=== PATIENT | male | born 1960 | race African-American/Black ===

== ENCOUNTER → 2016-11-25 | Outpatient (CLI) | payer MEDICARE, MEDICAID | LOC: SP 12:24 | PROVIDERS: ATTEND Surgery | DX: I87.333 Chronic venous hypertension (idiopathic) with ulcer and inflammation of bilateral lower extremity (principal); L97.212 Non-pressure chronic ulcer of right calf with fat layer exposed | CPT/HCPCS: 93925; 93970 ==

== ENCOUNTER → 2017-01-14 | Outpatient (CLI) | payer MEDICARE, MEDICAID | LOC: OD 13:26 | PROVIDERS: ATTEND Family Medicine | DX: M79.671 Pain in right foot (principal) ==

== ENCOUNTER 2017-01-26 05:56 | Day surgery (SDC) | payer MEDICARE, MEDICAID ==
[2017-01-20 12:06] LABS: HEMATOCRIT 41.1 % (37.9-51.0); HEMOGLOBIN 13.5 g/dL (13.5-17.0); HGB HCT DIFFERENCE -0.6; MEAN CORPUSCULAR HEMOGLOBIN 28.8 pg (27.0-33.4); MEAN CORPUSCULAR VOLUME 88 fl (80-97); RED BLOOD COUNT 4.69 10^6/uL (4.35-5.55); RED CELL DISTRIBUTION WIDTH 15.1 % (11.5-14.0)
[2017-01-20 12:27] LABS: ANION GAP 10 (5-19); BLOOD UREA NITROGEN 21 mg/dL (7-20); CALCIUM 9.6 mg/dL (8.4-10.2); CARBON DIOXIDE 29 mmol/L (22-30); CHLORIDE 104 mmol/L (98-107); GLUCOSE 113 mg/dL (75-110); POTASSIUM 4.5 mmol/L (3.6-5.0); SODIUM 143.4 mmol/L (137-145)
--- NOTE | 2017-01-20 13:40 | EKG REPORT ---
SEVERITY:- BORDERLINE ECG - SINUS RHYTHM BORDERLINE IVCD WITH LAD BORDERLINE T ABNORMALITIES, ANT-LAT LEADS : Confirmed by: Ricky Jiménez 20-Jan-2017 13:39:59
[~2017-01-26 05:56] MED LIST: DEXTROSE 5%-1/2 NORMAL SALINE 1,000 ML IV PRN; LACTATED RINGERS 1000 ML IV PRN
[2017-01-26] MEDS ORDERED: BUPIVACAINE HCL 0.25 % INJ/PF (2.5 MG/1 ML) 30 ML VIAL ONE (06:32)
[2017-01-26] MEDS ORDERED: LIDOCAINE 0.5% INJ-PF (5 MG/ML) 50 ML SDV ONE ×2 (06:33→07:42)
[2017-01-26] MEDS ORDERED: BACITRACIN INJ 50,000 UNIT VIAL ONE ×2 (06:33→09:07)
[2017-01-26] MEDS ORDERED: MIDAZOLAM 2 MG/2 ML INJ ONE (07:12)
[2017-01-26] MEDS ORDERED: PROPOFOL INJ 200 MG/20 ML VIAL IV ONE ×2 (07:12→10:04)
[2017-01-26] MEDS ORDERED: FENTANYL CITRATE INJ/PF 250 MCG/5 ML AMPULE ONE (07:12)
[2017-01-26] MEDS ORDERED: ACETAMINOPHEN 100 ML IV ONE (07:13)
[2017-01-26] MEDS ORDERED: DEXMEDETOMIDINE INJ 80 MCG/20 ML VIAL IV ONE (07:13)
[2017-01-26] MEDS: CEFAZOLIN 1 GM/D5W RTU 1 GM/50 ML RTUPB IV PRN ×2 (08:04→13:19)
[2017-01-26] MEDS ORDERED: ONDANSETRON HCL INJ/PF 4 MG/2 ML SDV IV PRN (08:14)
[2017-01-26] MEDS ORDERED: PROMETHAZINE HCL INJ 25 MG/1 ML VIAL IV PRN ×2 (08:14)
[2017-01-26] MEDS ORDERED: DIPHENHYDRAMINE HCL 50 MG/ML VIAL IV PRN (08:14)
[2017-01-26] MEDS ORDERED: MEPERIDINE HCL/PF INJ 25 MG/1 ML DISP.SYRIN IV PRN (08:14)
[2017-01-26] MEDS ORDERED: MORPHINE SULFATE 10 MG/ML INJ IV PRN ×2 (08:14→10:22)
[2017-01-26] MEDS ORDERED: OXYCODONE-ACETAMINOPHEN 5-325 MG TABLET PO PRN ×3 (08:14→10:23)
[2017-01-26] MEDS ORDERED: FENTANYL CITRATE INJ/PF 100 MCG/2 ML AMPUL IV PRN ×3 (08:14)
[2017-01-26] MEDS ORDERED: HYDRALAZINE HCL INJ/PF 20 MG/1 ML SDV ONE (10:04)
[2017-01-26] MEDS ORDERED: LIDOCAINE 2% INJ-PF (20 MG/ML) 10 ML AMPUL ONE (12:59)
[2017-01-26] MEDS: LIDOCAINE 0.5% INJ-PF (5 MG/ML) 50 ML SDV SUBCUT PRN ×2 (13:19→13:20)
--- NOTE | 2017-01-26 18:08 | Operative Report ---
Operative Report DATE OF SURGERY: 01/26/17 PREOPERATIVE DIAGNOSIS: #1 chronic venous stasis ulcers of the right leg. #2 sleep apnea. #3 obesity. #4 hypertension. POSTOPERATIVE DIAGNOSIS: #1 chronic venous stasis ulcers of the right leg. Post skin grafting. #2 sleep apnea. #3 obesity. #4 hypertension. OPERATION: #1 skin grafting to right leg chronic venous stasis ulcers. #2 from abdomen. Full-thickness graft. SURGEON: TREASURE RAMIREZ RN MED SURG: ALEXANDRA CHRISTIAN ANESTHESIA: LMAC TISSUE REMOVED OR ALTERED: Not applicable COMPLICATIONS: None ESTIMATED BLOOD LOSS: 20 mL. INTRAOPERATIVE FINDINGS: Of a large posterior and lateral venous stasis ulcer in the mid right leg. On the basis of fragile skin. Measures approximately 9 x 2.5 cm. A second axillary in the anterior leg measures about 2 cm. Both were nicely covered with a full-thickness skin graft taken from the abdomen. PROCEDURE: In this patient who has had many months of attempts at closing his lower extremity wounds in the wound clinic and in whom now appropriate level of venous intervention seems to be helpful, a skin graft is recommended. The patient is accepting of the procedure, risks, benefits, expected outcome . The right leg and abdomen were prepared, with Betadine and draped out with sterile linen. The heel and right lower extremity supported on wedges, so as to give circumferential access to the area of the wound. After the universal timeout, in which it was verified that the patient did receive antibiotic, the procedure commenced. The patient was appropriately anesthetized. The incision of appropriate dimensions to cover the recipient was marked on the abdomen. Local anesthesia was infiltrated in the abdominal donor site. First the skin was cleaned with saline so that no antiseptic remained. An oval incision was sketched in the crease just above the abdominal pannus. This was centered on the midline and measured about 9 x 3 cm. The incision was now made through the epidermis and dermis. Working from the right side of the patient, the skin donor was excised with a 15 blade scalpel. This was done in the deep dermal layer. The donor was now put aside in a saline moistened gauze. Underlying fatty tissue, at the donor site was now excised using cautery in order to facilitate closure. The donor site was now closed after obtaining hemostasis. Closure was done in layers, the deeper layer closed with interrupted 3-0 PDS and the skin closed with a continuous subcuticular suture of 4-0 Monocryl, reinforced with inch Steri-Strips over benzoin. A sterile dressing was now applied. Attention now turned to the right leg wound site. The leg was debrided of nonviable tissue and excess granulation tissue using a 10 blade scalpel with removal of loose debris as well. The wound was irrigated with sterile saline. A saline moistened gauze was now placed on the recipient sites. The donor was now defatted using iris scissors. It was thinned out. Cleaned with saline and then placed on the recipient site. Several incisions were made in the donor using a 11 blade scalpel. The donor was now sutured in place using 4 sutures of 3-0 PDS placed in the 4 quadrants. Each was left long for subsequent tying. Interval interrupted sutures of 3-0 PDS were placed in order to anchor the graft. Once once this was done satisfactorily an Adaptic gauze was placed on the graft followed by a gauze lightly moistened with saline. The 4 sutures previously left long were now tied over this so as to secure nice anchoring and appropriate pressure on the graft. 4 x 4s and Kerlix were now applied. Is to be noted that the secondary wound, somewhat medially was treated in identical fashion and both were dressed with 4 x 4s and Kerlix. Kerlix, then Webril then Christ wraps applied, the Christ wraps held in place with spiral 2 inch tape. The procedure was now concluded.
[2017-01-27] MEDS ORDERED: ENOXAPARIN SODIUM INJ 40 MG/0.4 ML DISP.SYRIN SUBCUT ONE (22:00)
[2017-01-28] MEDS ORDERED: ENOXAPARIN SODIUM INJ 40 MG/0.4 ML DISP.SYRIN SUBCUT SCH (10:00)
--- NOTE | 2017-01-28 16:48 | PDOC PROGRESS REPORT ---
Subjective Progress Note for:: 01/27/17 Subjective:: Doing OK after leg wound debridement and skin grafting. Physical Exam Vital Signs: Temp Pulse Resp BP Pulse Ox 98.1 F 90 16 117/70 98 01/27/17 03:34 01/27/17 03:34 01/27/17 03:34 01/27/17 03:34 01/27/17 03:34 Intake & Output 01/26/17 01/27/17 01/28/17 06:59 06:59 06:59 Intake Total 0 2393 Output Total 1145 Balance 0 1248 Weight 173.27 kg 79.333 kg Additional comments: Well-developed well-nourished -Romanian male, alert and oriented. Dressings in place in the right leg grafting site. Grafting site daughter on the abdomen is fine. Alert oriented, judgment, memory, insight normal. Results Laboratory Results: 01/20/17 11:28 01/26/17 06:16 Impressions: Chest X-Ray 01/20/17 11:36 IMPRESSION: NO SIGNIFICANT RADIOGRAPHIC FINDING IN THE CHEST. Assessment & Plan - Plan Summary Plan Summary: #1 chronic stasis ulcer of the right leg. 2 status post skin graft of the right leg. 3. Obesity. 4. Hypertension. Plan the patient is kept in for pain control. It is estimated that he should be able to go home in about 24-48 hours providing pain control is adequate.
--- NOTE | 2017-01-28 17:41 | PDOC DISCHARGE SUMMARY ---
General - Admit/Disc Date/PCP Admission Date/Primary Care Provider: ANDRE SERVIN DO Discharge Date: 01/28/17 - Additional Information Home Medications: Oxycodone HCl/Acetaminophen [Percocet 5-325 mg Tablet] 1 tab PO Q4HP PRN #35 tablet 08/16/15 Torsemide [Demadex 20 mg Tablet] 40 mg PO DAILY #30 tablet 08/16/15 Cyclobenzaprine HCl [Flexeril 10 mg Tablet] 10 mg PO TIDP PRN #15 tab 07/02/16 History of Present Illness Patient complains of: Patient has been treated for bilateral lower extremity stasis ulcers for several months. The one on the right has proved extremely resistant and is no subject to skin grafting. History of Present Illness: ADITYA BONILLA is a 56 year old male Hospital Course Hospital Course: The patient was admitted and underwent full-thickness skin graft from the abdominal wall to the right leg under local anesthesia with sedation. Procedure was satisfactory. The patient was kept in for pain control. The first operative day there was considerable improvement. As of note the patient has achieved maximal in-hospital benefits and will be discharged. Detailed discharge instructions are to be followed in the discharge order set. Patient is to continue his normal medications per the medical occasional red reconciliation sheet activities. Follow-up is to be in the wound clinic with Dr. Mendoza on next. Physical Exam Vital Signs: Temp Pulse Resp BP Pulse Ox 98 F 85 17 119/71 99 01/28/17 16:00 01/28/17 16:00 01/28/17 16:00 01/28/17 16:00 01/28/17 16:00 Intake & Output 01/27/17 01/28/17 01/29/17 06:59 06:59 06:59 Intake Total 2393 860 547 Output Total 1145 1000 700 Balance 1248 -140 -153 Weight 79.333 kg Additional comments: Well-developed well-nourished -Burkinan gentleman. No acute distress. Abdomen soft. Dressing in place from the donor site. Extremities pertinent for right lower extremity is in appropriate compression wrap. Results Laboratory Results: 01/20/17 11:28 01/26/17 06:16 Impressions: Chest X-Ray 01/20/17 11:36 IMPRESSION: NO SIGNIFICANT RADIOGRAPHIC FINDING IN THE CHEST. Plan Discharge Plan: Patient will be discharged home. Activities, diet, medication as before. The compression wrap on the right leg is to be left on until seen in the wound clinic next . Followed by appointment in the wound clinic next .
[2017-01-28 20:50] VITALS: BP 118/67
== END 2017-01-28 23:45 | disposition home health service (06) ==
LOC: OROUT 05:56 → 4N 10:46 → OROUT 01-28 23:45
PROVIDERS: ATTEND Surgery
PROC: 0HRKX73 Replacement of Right Lower Leg Skin with Autologous Tissue Substitute, Full Thickness, External Approach (ICD-10-PCS; 2017-01-26)
PROC: 0HBKXZZ Excision of Right Lower Leg Skin, External Approach (ICD-10-PCS; principal; 2017-01-26 08:00)
DX: I83.018 Varicose veins of right lower extremity with ulcer other part of lower leg (principal); M19.90 Unspecified osteoarthritis, unspecified site; E66.9 Obesity, unspecified; I10 Essential (primary) hypertension; G47.30 Sleep apnea, unspecified; Z68.43 Body mass index [BMI] 50.0-59.9, adult
CPT/HCPCS: 93005; 36415 ×2; 84132; 85027; 80048; 71020; 93010; 97597; 15220; 15221; J2250; J3490 ×5; J0690; J3010; J0360; J1650 ×2; A9270; J2704; J0131; 400

== ENCOUNTER 2017-02-22 17:59 | Emergency (ER) | payer MEDICARE, MEDICAID ==
[2017-02-22] MEDS ORDERED: HYDROMORPHONE HCL INJ/PF 2 MG/ML AMPULE IV ONE (19:32)
--- NOTE | 2017-02-22 19:32 | ER Document Report ---
ED General - General Mode of Arrival: Medic Information source: Patient TRAVEL OUTSIDE OF THE [place] IN LAST 30 DAYS: No - HPI Patient complains to provider of: Bilateral leg swelling and pain Onset: Other - 6 days ago Associated symptoms: Other - see notes above <FAREED SANDHU - Last Filed: 02/23/17 03:27> <SRAVAN PALENCIA - Last Filed: 02/23/17 03:51> - General Chief Complaint: Knee Injury Stated Complaint: LEG SWELLING Time Seen by Provider: 02/22/17 19:15 Notes: 56 year old male with history of arthritis to the bilateral knees, left sciatica , and a right leg skin graft secondary to a non-healing wound presents to the ED via EMS complaining of bilateral knee pain and swelling that started 6 days ago. Patient reports that he has been bed bound for the past couple days secondary to this pain and being unable to bear weight. Patient reports that yesterday he was able to get out of bed, but quickly lost his strength and states that his right knee was giving out. Patient has been on Percocet historically but when when they weren't helping he was switched over to Naproxen and Baclofen. PCP: Dr. Cárdenas (FAREED SANDHU) - Related Data Allergies/Adverse Reactions: No Known Allergies Allergy (Verified 01/20/17 11:09) Past Medical History - General Information source: Patient - Social History Smoking Status: Never Smoker Chew tobacco use (# tins/day): Yes Frequency of alcohol use: None Drug Abuse: None Family History: Arthritis, CVA, DM, Hypertension, Malignancy - Liver Patient has suicidal ideation: No Patient has homicidal ideation: No - Past Medical History Cardiac Medical History: Reports: Hx Hypertension, Hx Peripheral Vascular Disease GI Medical History: Reports: Hx Colonoscopy Musculoskeltal Medical History: Reports Hx Arthritis - bilateral knees, Reports Hx Musculoskeletal Deformity, Reports Hx Musculoskeletal Trauma Skin Medical History: Reports Hx Cellulitis Psychiatric Medical History: Denies: Hx Depression Past Surgical History: Reports: Hx Orthopedic Surgery - right knee scoped, Other - right leg skin graft - Immunizations Immunizations up to date: Yes Hx Diphtheria, Pertussis, Tetanus Vaccination: Yes <FAREED SANDHU - Last Filed: 02/23/17 03:27> Review of Systems - Review of Systems Constitutional: See HPI, Weakness EENT: No symptoms reported Cardiovascular: No symptoms reported Respiratory: No symptoms reported Gastrointestinal: No symptoms reported Genitourinary: No symptoms reported Male Genitourinary: No symptoms reported Musculoskeletal: See HPI, Joint pain - bilateral knee, Joint swelling - bilateral knee, Leg swelling - bilateral knee, Other - bilateral leg pain Skin: No symptoms reported Hematologic/Lymphatic: No symptoms reported Neurological/Psychological: No symptoms reported -: Yes All other systems reviewed and negative <FAREED SANDHU - Last Filed: 02/23/17 03:27> Physical Exam - General General appearance: Alert In distress: None - HEENT Head: Normocephalic, Atraumatic Eyes: Normal Extraocular movements intact: Yes Pupils: PERRL - Respiratory Respiratory status: No respiratory distress Breath sounds: Normal - Cardiovascular Rhythm: Regular Heart sounds: Normal auscultation - Abdominal Inspection: Morbidly Obese Distension: No distension Tenderness: Nontender - Back Back: Normal - Extremities General upper extremity: Normal inspection, Normal ROM General lower extremity: Normal inspection, Normal ROM Knee: Pain with ROM - right. No: Abrasion, Deformity - Neurological Neuro grossly intact: Yes Cognition: Normal Orientation: AAOx4 [place] Coma Scale Eye Opening: Spontaneous [place] Coma Scale Verbal: Oriented [place] Coma Scale Motor: Obeys Commands [place] Coma Scale Total: 15 Speech: Normal - Psychological Associated symptoms: Normal affect, Normal mood - Skin Skin Temperature: Warm Skin Moisture: Dry Skin Color: Normal <FAREED SANDHU - Last Filed: 02/23/17 03:27> Course - Laboratory Result Diagrams: 02/22/17 20:40 02/22/17 20:40 <FAREED SANDHU - Last Filed: 02/23/17 03:27> - Laboratory Result Diagrams: 02/22/17 20:40 02/22/17 20:40 <SRAVAN PALENCIA - Last Filed: 02/23/17 03:51> - Re-evaluation Re-evalutation: 02/22/17 22:01 Presenting to emergency department with a chief complaint of knee pain. Patient says he has chronic knee pain chronic back pain morbid obesity and is waiting to lose weight after gastric bypass surgery. 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 Told him that if he potentially loses weight he may not have to have a knee replacement. For the past 4-5 days he has had increasing pain a little bit of swelling in the knee but no obvious injury. No fevers chills cough abdominal pain back pain numbness tingling weakness loss of bowel or bladder function. And denies any history of fall. It has been increasingly difficult for him to get up and move around. On examination the knee is not red hot or swollen he is morbidly obese good pulses and perfusion with no evidence of septic joint x-ray shows severe compartmental arthritis. Again on a pain shot with minimal to no relief. He says he has Percocet at home that he does not take because it does not help the pain. He does have a primary care physician as well as orthopedic physician I did instruct him to take the Percocet 2 tablets every 4 hours and follow-up with the primary care physician in the next few days with referral to orthopedic surgeon. We do have an orthopedic surgeon conventional underwriter which I gave him the name and information of and he is to call and make a follow-up appointment. And discussed reasons for ED return sooner (SRAVAN PALENCIA) - Vital Signs Vital signs: Temp Pulse Resp BP Pulse Ox 98.9 F 114 H 20 135/97 H 100 02/22/17 23:59 02/22/17 23:59 02/22/17 23:59 02/22/17 23:59 02/22/17 23:59 - Laboratory Laboratory results interpreted by me: 02/22/17 02/22/17 02/22/17 19:51 20:40 20:40 WBC 14.1 H Hgb 13.0 L RDW 15.2 H Seg Neutrophils % 79.9 H Lymphocytes % 9.2 L Absolute Neutrophils 11.3 H Sodium 145.5 H BUN 22 H Urine Blood SMALL H Discharge <FAREED SANDHU - Last Filed: 02/23/17 03:27> <SRAVAN PALENCIA - Last Filed: 02/23/17 03:51> - Discharge Clinical Impression: knee pain with severe osteoarthritis Condition: Stable Additional Instructions: severe Arthritis with knee pain Your symptoms are due to arthritis. Arthritis is an inflammation of the joints. There are many types -- osteoarthritis (due to "wear and tear"), auto- immmune arthritis (such as rheumatoid, lupus, Cynthia's, and others), and crystal -induced arthritis (such as gout and pseudogout). The physician's examination, combined with laboratory tests, will determine the cause of your arthritis. All types of arthritis are treated with antiinflammatory medications. Other medication may be required for special types of arthritis, or if your problem does not respond to the antiinflammatory medicine. Local warmth may be helpful. Move the involved joints through the full range of motion daily. Mild exercise is usually still possible for most persons with arthritis (ask your physician). Swimming provides good exercise without damaging the joints. Contact the physician if you are worsening in any way. Referrals: ANDRE CÁRDENAS DO [Primary Care Provider] - Follow up in 3-5 days BLAINE ANGUIANO DO [ACTIVE STAFF] - (Call in a.m. for follow-up appointment in 3- 5 days return for increasing worsening or new set) Scribe Attestation: 02/22/17 22:01 I personally performed the services described in the documentation reviewed the documentation recorded by my scribe in my presence and it accurately and completely records my words and actions (SRAVAN PALENCIA) Scribe Documentation - Scribe Written by Josefina:: Josefina Stephens, 02/22/2017 [id number] acting as scribe for :: Zoran <FAREED SANDHU - Last Filed: 02/23/17 03:27>
[2017-02-22 20:15] LABS: APPEARANCE,URINE CLEAR; BILIRUBIN,URINE NEGATIVE (NEGATIVE); GLUCOSE, URINE NEGATIVE (NEGATIVE); KETONES,URINE NEGATIVE (NEGATIVE); LEUKOCYTE ESTERASE,URINE NEGATIVE (NEGATIVE); NITRITE,URINE NEGATIVE (NEGATIVE); PROTEIN,URINE NEGATIVE (NEGATIVE); URINE SPECIFIC GRAVITY 1.005; UROBILINOGEN,URINE NEGATIVE mg/dL (<2.0)
--- NOTE | 2017-02-22 20:18 | RADIOLOGY REPORT (SQ) ---
EXAM DESCRIPTION: KNEE RIGHT 4 VIEWS COMPLETED DATE/TIME: 02/22/2017 8:00 pm REASON FOR STUDY: pain COMPARISON: None. NUMBER OF VIEWS: Four views. TECHNIQUE: AP, lateral, and both oblique radiographic images acquired of the right knee. LIMITATIONS: None. FINDINGS: MINERALIZATION: Normal. BONES: No acute fracture or dislocation. Moderate -severe tricompartmental arthrosis. No worrisome bone lesions. Femoral and tibial osteochondromas. JOINT: Moderate effusion. SOFT TISSUES: Mild soft tissue swelling. No radio-opaque foreign body. OTHER: No other significant finding. IMPRESSION: No fracture. Moderate joint effusion. Moderate -severe tricompartmental degenerative c hanges. TECHNICAL DOCUMENTATION: JOB ID: [id number] [employer]- All Rights Reserved
--- NOTE | 2017-02-22 20:21 | RADIOLOGY REPORT (SQ) ---
EXAM DESCRIPTION: KNEE LEFT 4 VIEW COMPLETED DATE/TIME: 02/22/2017 8:00 pm REASON FOR STUDY: pain COMPARISON: None. NUMBER OF VIEWS: Four views. TECHNIQUE: AP, lateral, and both oblique radiographic images acquired of the left knee. LIMITATIONS: None. FINDINGS: MINERALIZATION: Normal. BONES: No acute fracture or dislocation. Moderate -severe tricompartmental arthrosis. No worrisome bone lesions. Tibial osteochondromas. JOINT: No effusion. SOFT TISSUES: No soft tissue swelling. No radio-opaque foreign body. OTHER: No other significant finding. IMPRESSION: No fracture. TECHNICAL DOCUMENTATION: JOB ID: [id number] [employer]- All Rights Reserved
[2017-02-22 20:50] LABS: ABSOLUTE BASOPHILS # (AUTO) 0.1 10^3/uL (0.0-0.2); ABSOLUTE EOSINOPHILS # (AUTO) 0.1 10^3/uL (0.0-0.6); ABSOLUTE LYMPHOCYTES (AUTO) 1.3 10^3/uL (0.5-4.7); ABSOLUTE MONOCYTES (AUTO) 1.3 10^3/uL (0.1-1.4); ABSOLUTE NEUT (AUTO) 11.3 10^3/uL (1.7-8.2); BASOPHILS % (AUTO) 0.4 % (0-2); HEMATOCRIT 40.2 % (37.9-51.0); HGB HCT DIFFERENCE -1.2; LYMPHOCYTES % (AUTO) 9.2 % (13-45); MEAN CORPUSCULAR HEMOGLOBIN 28.6 pg (27.0-33.4); MEAN CORPUSCULAR HGB CONC 32.3 g/dL (32.0-36.0); MEAN CORPUSCULAR VOLUME 89 fl (80-97); MONOCYTES % (AUTO) 9.5 % (3-13); RED BLOOD COUNT 4.54 10^6/uL (4.35-5.55); RED CELL DISTRIBUTION WIDTH 15.2 % (11.5-14.0); SEGMENTED NEUTROPHILS % (AUTO) 79.9 % (42-78); WHITE BLOOD COUNT 14.1 10^3/uL (4.0-10.5)
[2017-02-22 21:18] LABS: ANION GAP 14 (5-19); BLOOD UREA NITROGEN 22 mg/dL (7-20); CARBON DIOXIDE 28 mmol/L (22-30); CHLORIDE 104 mmol/L (98-107); CREATININE RESULT 1.17 mg/dL (0.52-1.25); GLUCOSE 109 mg/dL (75-110); POTASSIUM 3.6 mmol/L (3.6-5.0); SODIUM 145.5 mmol/L (137-145)
[2017-02-23 12:11] VITALS: BP 116/76
== END 2017-02-23 13:01 | disposition home or self-care (01) ==
LOC: ER 17:59
DX: M17.0 Bilateral primary osteoarthritis of knee (principal); M25.561 Pain in right knee; M25.562 Pain in left knee; M54.9 Dorsalgia, unspecified; R53.1 Weakness; G89.29 Other chronic pain; I10 Essential (primary) hypertension; E66.01 Morbid (severe) obesity due to excess calories; Z68.43 Body mass index [BMI] 50.0-59.9, adult; Z79.52 Long term (current) use of systemic steroids; Z79.899 Other long term (current) drug therapy; Z72.0 Tobacco use; Z98.84 Bariatric surgery status
CPT/HCPCS: 99284; 96374; 36415; 85025; 80048; 81001; 73562; 73564; J1170

== ENCOUNTER → 2020-04-08 | Outpatient (CLI) | payer MEDICARE, OTHER ==
--- NOTE | 2020-04-08 11:14 | RADIOLOGY REPORT (SQ) ---
EXAM DESCRIPTION: CHEST PA/LATERAL IMAGES COMPLETED DATE/TIME: 04/08/2020 11:07 am REASON FOR STUDY: ESSENTIAL HYPOTNSION COMPARISON: 08/20/2015 EXAM PARAMETERS: NUMBER OF VIEWS: two views TECHNIQUE: Digital Frontal and Lateral radiographic views of the chest acquired. RADIATION DOSE: NA LIMITATIONS: none FINDINGS: LUNGS AND PLEURA: No opacities, masses or pneumothorax. No pleural effusion. MEDIASTINUM AND HILAR STRUCTURES: No masses or contour abnormalities. HEART AND VASCULAR STRUCTURES: Heart normal size. No evidence for failure. BONES: No acute findings. HARDWARE: None in the chest. OTHER: No other significant finding. IMPRESSION: NO SIGNIFICANT RADIOGRAPHIC FINDING IN THE CHEST. TECHNICAL DOCUMENTATION: JOB ID: [id number] [employer]- All Rights Reserved Reading location - IP/workstation name: [email or web address]
--- NOTE | 2020-04-08 19:48 | EKG REPORT ---
SEVERITY:- BORDERLINE ECG - SINUS TACHYCARDIA BORDERLINE IVCD WITH LAD : Confirmed by: Janet Christopher MD 08-Apr-2020 19:46:57
== END ==
LOC: OD 10:36
PROVIDERS: ATTEND Family Medicine
DX: I10 Essential (primary) hypertension (principal)
CPT/HCPCS: 71046; 93005; 93010